=== PATIENT | male | born 1985 | race Asian ===

== ENCOUNTER 2018-08-24 19:11 | Emergency (ER) | payer OTHER ==
[~2018-08-24] VITALS: Ht 170.2 cm; Wt 104.3 kg
[2018-08-24 19:11] VITALS: BP_SYST 132
--- NOTE | 2018-08-24 19:12 | NUR ---
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
--- NOTE | 2018-08-24 19:12 | NUR ---
Pt c/o dizziness, H/A, and vomiting x 1 hour [employer]IOR [employer]. Pt hyperventilating, RR 24. Pt reassured and instructed to try to slow down respirations.
--- NOTE | 2018-08-24 19:12 | NUR ---
Placed in room 5 . Placed on quality assurance monitor final, blood pressure machine and pulse oximeter. To gown for exam. Side rails up. Report given to Yair MARTÍNEZ.
--- NOTE | 2018-08-24 19:45 | NUR ---
Pt with even and non-labored respirations, RR 20.
--- NOTE | 2018-08-24 20:00 | NUR ---
Dr. Perez at bedside.
[2018-08-24 20:05] LABS: BASOPHILS # (AUTO) 0.1 K/uL (0.0-0.2); BASOPHILS % (AUTO) 0.7 % (0.0-2.0); EOSINOPHILS # (AUTO) 0.2 K/uL (0.0-0.4); EOSINOPHILS % (AUTO) 1.3 % (0.0-4.0); HEMATOCRIT 50.7 % (36-54); HEMOGLOBIN 16.7 g/dL (14.0-18.0); LYMPHOCYTES # (AUTO) 2.3 K/uL (1.0-5.5); LYMPHOCYTES % (AUTO) 18.1 % (20.5-51.5); MEAN CORPUSCULAR HEMOGLOBIN 29 pg (27-31); MEAN CORPUSCULAR HGB CONC 33 % (32-36); MEAN CORPUSCULAR VOLUME 87 fL (79.0-98.0); MONOCYTES # (AUTO) 0.7 K/uL (0.0-1.0); MONOCYTES % (AUTO) 5.6 % (1.7-9.3); NEUTROPHILS # (AUTO) 9.6 K/uL (1.8-7.7); NEUTROPHILS % (AUTO) 74.3 % (40.0-70.0); PLATELET COUNT (AUTO) 329 K/uL (130-430); RED BLOOD CELL COUNT(AUTO) 5.81 MIL/uL (4.2-6.2); RED CELL DISTRIBUTION WIDTH 13.3 % (9.0-15.0); WHITE BLOOD COUNT (AUTO) 12.9 K/uL (4.8-10.8)
--- NOTE | 2018-08-24 20:10 | NUR ---
Pt wretching, small amount of brown stomach contents noted to emesis bag. Dr. Perez notified.
--- NOTE | 2018-08-24 20:10 | NUR ---
ER Dr. Perez at bedside examining patient.
[2018-08-24] MEDS ORDERED: NACL 0.9% 1,000 ML IV ONE (20:15)
[2018-08-24] MEDS ORDERED: ONDANSETRON HCL 4 MG/2 ML VIAL IVP ONE ×2 (20:15)
[2018-08-24 20:16] LABS: CALCIUM 9.8 mg/dL (8.4-11.0); CREATININE 1.1 mg/dL (0.55-1.30); POTASSIUM 4.4 mmol/L (3.5-5.1)
--- NOTE | 2018-08-24 20:18 | NUR ---
Pt to CT in stable condition.
[2018-08-24 20:20] LABS: ALBUMIN 3.7 g/dL (3.4-4.8); TOTAL BILIRUBIN 0.4 mg/dL (0.0-1.0)
--- NOTE | 2018-08-24 20:25 | NUR ---
Pt returns from CT.
[2018-08-24] MEDS ORDERED: KETOROLAC TROMETHAMINE 30 MG VIAL ONE (21:12)
[2018-08-24] MEDS ORDERED: KETOROLAC TROMETHAMINE 30 MG VIAL IVP ONE (21:15)
--- NOTE | 2018-08-24 21:45 | NUR ---
Pt states that he feels much butter. Dr. Perez notified.
--- NOTE | 2018-08-24 21:50 | NUR ---
Dr. Perez at bedside.
[2018-08-24] MEDS ORDERED: MECLIZINE HCL 25 MG TABLET (ANITVERT) PO ONE (22:00)
[2018-08-24] MEDS ORDERED: LORazepam 2 MG/ML VIAL (FOR ER USE) IVP ONE (22:00)
[2018-08-24 23:20] VITALS: BP_SYST 128
--- NOTE | 2018-08-24 23:20 | NUR ---
Patient given written and verbal discharge instructions and verbalizes understanding. ER MD discussed with patient the results and treatment provided. Patient in stable condition. ID arm band removed. IV catheter removed intact and dressing applied, no active bleeding. Rx of Meclizine given. Patient educated on pain management and to follow up with PMD. Pain Scale 0/10. Opportunity for questions provided and answered. Medication side effect fact sheet provided.
== END 2018-08-24 23:20 | disposition home or self-care (01) ==
LOC: SED 19:11
DX: R42 Dizziness and giddiness (principal); R03.0 Elevated blood-pressure reading, without diagnosis of hypertension
CPT/HCPCS: 36415; 70450; 80053; 85025; 93005; 96361; 96374; 96375; 99284; J1885; J2060; J2405; J7030; J8597